=== PATIENT | male | born 1965 | race Caucasian/White ===

== ENCOUNTER 2021-11-17 12:06 | Emergency (ER) | payer BC, SELFPAY ==
[2021-11-17 12:15] VITALS: BP 138/82; PULSE 68; RESP 19; TEMP 36.6; O2SAT 98; BMI 25.8
--- NOTE | 2021-11-17 12:41 | HMH.EDUTC ---
[facility] [place] Disposition Clinical Impression: Impacted ear wax Qualifiers: Laterality: bilateral Qualified Code(s): H61.23 - Impacted cerumen, bilateral Disposition: Home, Self-Care Condition on Discharge: Good Instructions: Cerumen Impaction Additional Instructions: Over the counter Debrox may help with ear wax impaction Follow up with your Family Doctor if no improvement or any worsening of symptoms Straight to ER if any life threatening symptoms Referrals: Reid Hernandez MD [Primary Care Provider] - As needed Time of Disposition: 12:48 Medical Decision Making - Juan José Inquiry Pt receiving controlled substance: No Juan José was queried for this patient: No Vital Signs: 11/17/21 12:15 Temperature 97.8 F Temperature Source Oral Pulse Rate [Right Brachial] 68 Respiratory Rate 19 Blood Pressure [Right Arm] 138/82 Blood Pressure Mean [Right Arm] 100 Blood Pressure Source [Right Arm] Automatic Cuff Blood Pressure Position [Right Arm] Sitting 02 Sat by Pulse Oximetry 98 Oxygen Delivery Method Room Air [facility] [place] HPI - General Stated complaint: stopped up ears Time Seen by Provider: 11/17/21 12:41 Mode of Arrival: Ambulatory Source of Information: Patient Limitations: No Limitations Description of Symptoms (Recalled from Triage Doc. by RN): PATIENT STATES HE IS NEEDING BOTH EARS FLUSHED TO REMOVE EXCESS WAX HEENT Symptoms (Recalled from RN notes): Yes Resp Symptoms (Recalled from RN notes): No Skin Symptoms (Recalled from RN notes): No MS Symptoms (Recalled from RN notes): No Functional Status (Recalled from RN notes): WNL - History of Present Illness Provider Complaint: Patient states that both his ears are stopped up so he came in to get them flushed out States that he hasnt been able to hear well and feels like they are plugged off - Related Data Home Medications Medication Instructions Recorded Confirmed atorvastatin 10 mg tablet PO #90 tab 09/28/18 09/28/18 lisinopril 10 PO #90 tab 09/28/18 09/28/18 mg-hydrochlorothiazide 12.5 mg tablet Allergies Allergy/AdvReac Type Severity Reaction Status Date / Time No Known Allergies Allergy Verified 09/28/18 12:49 - Worker's Comp Is this a Worker's Comp case?: No [facility] History - Hepatitis A Screen Attestation statement:: This patient has been screened for Hepatitis A risk factors. I have reviewed the patient's past medical history: Yes Medical History: Reports:: Hypertension Other Surgeries: Yes: No Previous Surgery - Social History Smoking Status: Never smoker Alcohol Intake: current Alcohol Intake Frequency:: a few times a week Substance Use Type: denies use Occupational Status: employed Housing: house Household Members: family Family Hx:: Cancer ROS Obtained: Yes All systems reviewed & no additional complaints, Yes Systems reviewed as appropriate & no additional complaints - Constitutional Constitutional: Reports system reviewed and no additional complaints, except as docu - ENT Ears, Nose, Mouth, and Throat: Reports system reviewed and no additional complaints, except as docu, Reports other (Ears stopped up) Physical Exam - General General appearance: alert, in no apparent distress - Expanded ENT Exam TM/Canal exam: Bilateral TM: cerumen impaction - Respiratory Respiratory exam: Present: normal lung sounds bilaterally. Absent: respiratory distress - Cardiovascular Cardiovascular exam: Present: regular rate, normal rhythm. Absent: JVD - Abdominal Exam Abdominal exam: Present: soft, normal bowel sounds. Absent: distention, tenderness, guarding - Neurological Exam Neurological exam: Present: alert, oriented X3
[2021-11-17 12:51] VITALS: BP 138/82; PULSE 68; RESP 19; TEMP 36.6; O2SAT 98
== END 2021-11-17 12:52 | disposition home or self-care (01) ==
PROVIDERS: Emergency Provider Nurse Practitioner; PCP Family Medicine
DX: H61.23 Impacted cerumen, bilateral (principal)
CPT/HCPCS: 99212; G0463